=== PATIENT | female | born 1975 | race Caucasian/White ===

== ENCOUNTER 2016-08-19 06:36 | Day surgery (SDC) | payer OTHER, MEDICAID ==
[~2016-08-19 06:36] MED LIST: CLINDAMYCIN 600 MG/DEXTROSE 50 ML IV ONE; DEXAMETHASONE 10 MG/ML VIAL IVP ONE; OXYMETAZOLINE 30 ML NASAL SPRAY EACHNARE SCH
[2016-08-19] MEDS ORDERED: LIDO/EPI 1% **Not for Epidural 20 ML MDV ONE (06:57)
[2016-08-19] MEDS ORDERED: LIDOCAINE 1% 2 ML INJ ONE (07:17)
[2016-08-19] MEDS ORDERED: LR 1,000 ML IV ONE (07:19)
[2016-08-19] MEDS ORDERED: LIDOCAINE 1% 2 ML INJ ID PRN (07:19)
[2016-08-19] MEDS ORDERED: SCOPOLAMINE HYDROBROMIDE 1.5 MG PATCH TD ONE (07:44)
[2016-08-19] MEDS ORDERED: MIDAZOLAM 2 MG/2 ML VIAL IVP ONE (07:44)
--- NOTE | 2016-08-19 07:46 | PDANEPAE ---
ANE History of Present Illness Patient presents for sinus surgery ANE Past Medical History - Cardiovascular History Hx Hypertension: No Hx Arrhythmias: No Hx Chest Pain: No Hx Coronary Artery / Peripheral Vascular Disease: No Hx CHF / Valvular Disease: No Hx Palpitations: No - Pulmonary History Hx COPD: No Hx Asthma/Reactive Airway Disease: Yes Hx Recent Upper Respiratory Infection: No Hx Oxygen in Use at Home: Yes O2 in Use at Home (L/minute): 2 L NC at NOC - Neurologic History Hx Cerebrovascular Accident: No Hx Seizures: Yes Hx Dementia: No - Endocrine History Hx Diabetes: No - Renal History Hx Renal Disorders: No - Liver History Hx Hepatic Disorders: No - Neurological & Psychiatric Hx Hx Neurological and Psychiatric Disorders: Yes - Cancer History Hx Cancer: No - Congenital Disorder History Hx Congenital Disorders: Yes - GI History Hx Gastrointestinal Disorders: No ANE Review of Systems - Exercise capacity Exercise capacity: >=4 METS METS (RN): 4 METS ANE Patient History - Allergies Allergies/Adverse Reactions: hydrocodone bitartrate [From Vicodin] Allergy (Verified 10/02/14 18:07) promethazine [From Phenergan] Allergy (Verified 08/03/16 11:14) Other-Enter Comments - Home Medications Home Medications: Abilify 08/03/16 [Last Taken 07/29/16] Atrovent Hfa (*) 08/03/16 [Last Taken 07/19/16] Baclofen 08/03/16 [Last Taken 08/16/16] Benztropine Mesylate 08/03/16 [Last Taken 08/05/16] Chantix 08/03/16 [Last Taken 08/18/16 23:00] FLUTICASONE PROPIONATE 08/03/16 [Last Taken 07/19/16] Frovatriptan Succinate 08/03/16 [Last Taken 08/05/16] GABAPENTIN 08/03/16 [Last Taken 07/19/16] Metformin HCl 08/03/16 [Last Taken 08/16/16] Prazosin HCl 08/03/16 [Last Taken 08/05/16] Ritalin-Sr 08/03/16 [Last Taken 07/19/16] Symbicort 80-4.5 Mcg Inhaler 08/03/16 [Last Taken 08/05/16] Tudorza Pressair 08/03/16 [Last Taken 07/19/16] traMADol 08/03/16 [Last Taken 08/18/16 09:00] - NPO status NPO Since - Liquids (Date): 08/18/16 NPO Since - Liquids (Time): 22:00 NPO Since - Solids (Date): 08/18/16 NPO Since - Solids (Time): 22:00 - Anes Hx Anes Hx: post operative nausea and vomiting - Smoking Hx Smoking Status: Former smoker ANE Labs/Vital Signs - Vital Signs Blood Pressure: 120/73 Heart Rate: 82 Respiratory Rate: 16 O2 Sat (%): 97 Height: 162.56 cm Weight: 81.647 kg ANE Physical Exam - Airway Neck exam: decreased ROM, short neck Mallampati Score: Class 3 Mouth exam: small mouth opening - Pulmonary Pulmonary: no respiratory distress - Cardiovascular Cardiovascular: regular rate and rhythym - ASA Status ASA Status: II ANE Anesthesia Plan Anesthesia Plan: general endotracheal anesthesia (Glidescope, RBA discussed, patient agrees to proceed. )
[2016-08-19] MEDS ORDERED: PROPOFOL/EMULSION 500 MG/50 ML BOTTLE IV ONE (07:48)
[2016-08-19] MEDS ORDERED: PROPOFOL 200 MG/20 ML VIAL ONE (07:48)
[2016-08-19] MEDS ORDERED: fentaNYL 100 MCG/2 ML INJ ONE ×2 (07:48→09:13)
--- NOTE | 2016-08-19 07:51 | PDHPUP ---
History & Physical Update H&P update statement: This history and physical update is based on an assessment of the patient which was completed after admission or registration (within 24 hours), but prior to the surgery/procedure. H&P update: H&P reviewed & patient examined, no change in patient's condition since H&P completed
[2016-08-19] MEDS ORDERED: DEXAMETHASONE 10 MG/ML VIAL IVP ONE (08:00)
[2016-08-19] MEDS ORDERED: CLINDAMYCIN 600 MG/DEXTROSE 50 ML IV ONE (08:00)
[2016-08-19] MEDS ORDERED: OXYMETAZOLINE 30 ML NASAL SPRAY EACHNARE ONE (08:00)
[2016-08-19] MEDS ORDERED: METOCLOPRAMIDE 10 MG/2 ML VIAL ONE (08:42)
[2016-08-19] MEDS ORDERED: ROCURONIUM 50 MG/5 ML VIAL ONE ×3 (09:09)
[2016-08-19] MEDS ORDERED: LIDOCAINE 2% 5 ML SDV ONE (09:09)
[2016-08-19] MEDS ORDERED: fentaNYL 100 MCG/2 ML INJ IVP PRN (09:58)
[2016-08-19] MEDS ORDERED: NALOXONE HCL 0.4 MG/ML INJ IVP PRN (09:58)
[2016-08-19] MEDS ORDERED: ONDANSETRON 4 MG/2 ML VIAL IVP PRN (09:58)
[2016-08-19] MEDS ORDERED: DEXAMETHASONE 4 MG/ML VIAL IVP PRN (09:58)
[2016-08-19] MEDS ORDERED: SUCCINYLCHOLINE CHLORIDE*ANESTHESIA ONLY*200 MG/10 ML SYR IVP ONE (10:07)
[2016-08-19] MEDS ORDERED: SUGAMMADEX SODIUM 200 MG/2 ML VIAL IVP ONE (10:16)
[2016-08-19] MEDS ORDERED: ACETAMINOPHEN 160 MG/5 ML UDCUP PO PRN (10:24)
[2016-08-19] MEDS ORDERED: OXYCODONE/APAP 5/325 TAB PO PRN (10:24)
--- NOTE | 2016-08-19 10:43 | POSTANESTH ---
Post Anesthetic Evaluation Cardiovascular Status: Normal, Stable Respiratory Status: Normal, Stable Level of Consciousness/Mental Status: Can Participate in Eval Pain Control: Adequate, Prn Tx Ordered Nausea/Vomiting Control: Adequate, Prn Tx Ordered (Difficult airway. Patient notified.) Complications Possibly Related to Anesthesia: None Noted
[2016-08-19 11:04] VITALS: TEMP 97.2
[2016-08-19 11:19] VITALS: RESP 14
[2016-08-19 11:32] VITALS: O2SAT 95
[2016-08-19 11:41] VITALS: BP 149/93; PULSE 95
--- NOTE | 2016-08-19 15:10 | GOP ---
[f rep st] OPERATIVE REPORT DATE OF OPERATION: 08/19/2016 SURGEON: Rosenda Wilson MD ANESTHESIA: General endotracheal. PREOPERATIVE DIAGNOSIS: 1. Deviated nasal septum. 2. Nasal valve stenosis. 3. Turbinate hypertrophy. POSTOPERATIVE DIAGNOSIS: 1. Deviated nasal septum. 2. Nasal valve stenosis. 3. Turbinate hypertrophy. PROCEDURE PERFORMED: 1. Open septoplasty. 2. Nasal valve repair with use of head of acquisitions graft on the left. 3. Submucous resection of each inferior turbinate with outfracture. FINDINGS: 1. Fractured nasal septum to the right, nearly 100% obstructing. 2. Nasal valve stenosis responding to Camelia maneuver on the left side. 3. Turbinate hypertrophy more predominant on the left. 1. External nasal deformity necessitating medial and one-sided right lateral osteotomies. 4. SPECIMENS: None. ESTIMATED BLOOD LOSS: 100 cc. INDICATIONS: Patient is a 41-year-old female with a history of chronic nasal obstruction. The abov e findings were noted preoperatively, and risks, benefits, and alternatives of the above procedure w ere discussed. She desired to proceed forward. DESCRIPTION OF PROCEDURE: Patient was met in preoperative holding. Informed consent is confirmed. Patient brought to the operating room. She underwent induction of general anesthesia with placemen t of endotracheal without difficulty although it should be noted she was a moderately challenging in tubation requiring the use of GlideScope. She was then rotated 180 degrees to operating surgeon. H er eyes were covered with Tegaderm and Lacri-Lube. The nose was marked with a surgical marker for t he incision on the columella, and then 5 cc of 1% lidocaine with 1:1000 epinephrine was infiltrated throughout the nasal septum and the external nose. She was then widely prepped and draped in the st andard fashion. The columella incision was made with a 15 blade scalpel and then elevated off the m edial crura using the [place] scissors. Using 3-point retraction, this is then transitioned to mar ginal incision. The remaining soft tissue was elevated off the nasal dorsum. A couple of small ble eders in the columella were cauterized using the bipolar cautery set at 12. Next the lower lateral cartilages were grasped laterally, and the septum was identified. Submucoperichondrial flaps were e levated bilaterally. This was taken up to the level of the upper lateral cartilages, and this is se parated off the dorsal septum. At this point, while preserving 1 cm dorsally and 1 cm caudally, the remaining bony cartilaginous nasal septum was then removed and reserved for use later. The caudal edge of the L strut was disarticulated from the spine and then rearticulated using 5-0 Vicryl on an RB1. A photograph on the left side was fashioned using the previously harvested cartilage, and this was affixed using 6-0 Prolene and medial osteotomies of the straight osteotome are then performed. The tip was reconstituted using interdermal sutures and 7-0 Prolene as was the medial crura. Sever al quilting mattress sutures throughout the nasal septum were then applied using 4-0 chromic. At th is point, I turned my attention to the turbinates using the rigid endoscope. Stab incisions were ma de into each inferior turbinate head, and pockets were elevated using caudal elevator. Using the 2 mm microdebrider, a submucous resection of each inferior turbinate was then performed. This is more predominant on the left side. A Boies elevator was then used to outfracture each inferior turbinat e. The nasal airway was significantly improved. At this point, soft silastic splints were then mackenzie lied to the septum using 3-0 Prolene, and the columellar incision was closed using 6-0 Prolene. Add itional lidocaine with epinephrine was infiltrated over the right nasal pyramid, and a subperiosteal tunnel was then dissected using [place] elevator superior to the inferior turbinate. Using the guar ded curved osteotome, a right lateral osteotomy was then performed to create improved symmetry of th e nose. at this point, the patient was suctioned free of any excess blood, face cleansed of any exc ess Betadine, and Steri-Strips, Mastisol, and nasal cast were then applied. at this point, the ciarra ent is turned back to Anesthesia for wake up. At the end of this procedure, all sponge and instrume nt counts were correct. I personally performed all portions of this case. FLUIDS: 1 L of crystalloid. /[id number]/MODL
== END 2016-08-19 12:00 | disposition home or self-care (01) ==
LOC: FSGY 06:36
PROVIDERS: ATTEND Otolaryngology
DX: J34.2 Deviated nasal septum (principal); J34.3 Hypertrophy of nasal turbinates; J34.89 Other specified disorders of nose and nasal sinuses; J45.909 Unspecified asthma, uncomplicated; F17.210 Nicotine dependence, cigarettes, uncomplicated; G47.33 Obstructive sleep apnea (adult) (pediatric); F41.8 Other specified anxiety disorders; F31.9 Bipolar disorder, unspecified; Z98.1 Arthrodesis status
CPT/HCPCS: J0330; J2250; J2704; J2765; J3010